=== PATIENT | male | born 1975 | race Caucasian/White ===

== ENCOUNTER 2021-09-19 10:05 | Outpatient (REF) | payer OTHER, SELFPAY ==
[2021-09-19 10:48] LABS: Estimated Average Glucose 217 mg/dL; Hemoglobin A1c % 9.2 %
[2021-09-19 11:50] LABS: Erythrocyte Sedimentation Rate 7 MM/HR (0-15)
[2021-09-19 12:47] LABS: Folate 18.6 ng/mL (> or = 4.0); Vitamin B12 386 pg/mL (200-900)
[2021-09-21 01:06] LABS: Lyme Abs Screen <0.90 index
[2021-09-23 02:17] LABS: IgA 306 mg/dL (47-310); IgG 1051 mg/dL (600-1640); IgM 77 mg/dL (50-300)
== END 2021-09-19 10:06 | disposition home or self-care (01) ==
LOC: HO.LAB 10:05
PROVIDERS: PCP Pediatrics; Visit Provider Psychiatry & Neurology Neurology
DX: E11.40 Type 2 diabetes mellitus with diabetic neuropathy, unspecified (principal)
CPT/HCPCS: 36415; 82607; 82746; 82784; 83036; 85652; 86334; 86617; 86618